=== PATIENT | male | born 1960 | race Caucasian/White ===

== ENCOUNTER → 2016-04-13 | Day surgery (SDC) | payer MEDICAID ==
[~2016-04-13] MED LIST: BUPIVACAINE HCL 0.5 % INJ/PF 30 ML SDV ONE; LIDOCAINE 1% INJ-PF (10 MG/ML) 30 ML SDV ONE; METHYLPREDNISOLONE ACETATE INJ 40 MG/1 ML ML ONE
== END ==
LOC: RAD 08:39
PROVIDERS: ATTEND Orthopaedic Surgery
PROC: 3E0U33Z Introduction of Anti-inflammatory into Joints, Percutaneous Approach (ICD-10-PCS; principal; 2016-04-13)
DX: M16.0 Bilateral primary osteoarthritis of hip (principal)
CPT/HCPCS: 73501; 20610; 77002; J3490; J1020

== ENCOUNTER → 2016-04-27 | Day surgery (SDC) | payer MEDICAID | LOC: RAD 08:35 | PROVIDERS: ATTEND Orthopaedic Surgery | PROC: 3E0U33Z Introduction of Anti-inflammatory into Joints, Percutaneous Approach (ICD-10-PCS; principal; 2016-04-27) | DX: M16.0 Bilateral primary osteoarthritis of hip (principal) | CPT/HCPCS: 73501; 20610; 77002; J3490; J1020 ==

== ENCOUNTER → 2016-05-06 | Outpatient (CLI) | payer MEDICAID | LOC: RAD 08:50 | PROVIDERS: ATTEND Nurse Practitioner Adult Health | DX: R06.02 Shortness of breath (principal) | CPT/HCPCS: 71250 ==

== ENCOUNTER 2016-09-23 13:09 | Observation (INO) | payer MEDICAID ==
--- NOTE | 2016-09-23 13:35 | ER Document Report ---
ED Medical Screen (RME) - General Chief Complaint: High Blood Pressure Stated Complaint: DIZZY,BLURRED VISION,LEFT ARM NUMB Time Seen by Provider: 09/23/16 13:33 Notes: Patient is here to be seen because of high blood pressure. He had an appointment to see a local physician today and when he went to their office, he says his blood pressure was 220/120 and they referred him here by EMS. Patient says he has been having some blurry vision for the past several years, intermittent numbness of the left arm for months, and a headache off and on, also for years, but worse this morning. Also has a rash on his abdomen that he had not noted. Says he has a history of congestive heart failure. Says he stopped taking all of his medicines because they did not seem to be working. EMS recorded a blood pressure of 230/135 and gave the patient some IV labetalol and received here. Patient denies any chest pains. TRAVEL OUTSIDE OF THE [place] IN LAST 30 DAYS: No - Related Data Allergies/Adverse Reactions: acetaminophen Allergy (Verified 09/23/16 13:16) Penicillins Allergy (Verified 09/23/16 13:16) Past Medical History - Past Medical History Cardiac Medical History: Reports: Hx Congestive Heart Failure, Hx Hypertension Pulmonary Medical History: Reports: Hx COPD Renal/ Medical History: Denies: Hx Peritoneal Dialysis GI Medical History: Reports: Hx Hiatal Hernia Psychiatric Medical History: Reports: Hx Depression
--- NOTE | 2016-09-23 14:06 | RADIOLOGY REPORT (SQ) ---
EXAM DESCRIPTION: CHEST SINGLE VIEW COMPLETED DATE/TIME: 09/23/2016 1:52 pm REASON FOR STUDY: severe hypertension, with Hx CHF COMPARISON: Chest CT scan dated April 2016 EXAM PARAMETERS: NUMBER OF VIEWS: One view. TECHNIQUE: Single frontal radiographic view of the chest acquired. RADIATION DOSE: NA LIMITATIONS: None. FINDINGS: LUNGS AND PLEURA: No opacities, masses or pneumothorax. No pleural effusion. MEDIASTINUM AND HILAR STRUCTURES: No masses. Contour normal. HEART AND VASCULAR STRUCTURES: Cardiac silhouette is at the upper limits of normal in size. BONES: No acute findings. HARDWARE: None in the chest. OTHER: No other significant finding. IMPRESSION: NO ACUTE RADIOGRAPHIC FINDING IN THE CHEST. TECHNICAL DOCUMENTATION: JOB ID: [id number]
[2016-09-23 14:10] LABS: ABSOLUTE EOSINOPHILS # (AUTO) 0.1 10^3/uL (0.0-0.6); ABSOLUTE LYMPHOCYTES (AUTO) 1.5 10^3/uL (0.5-4.7); ABSOLUTE MONOCYTES (AUTO) 0.7 10^3/uL (0.1-1.4); MEAN CORPUSCULAR HEMOGLOBIN 33.6 pg (27.0-33.4); RED BLOOD COUNT 5.31 10^6/uL (4.35-5.55); RED CELL DISTRIBUTION WIDTH 13.8 % (11.5-14.0)
[2016-09-23 14:25] LABS: ABSOLUTE NEUT (AUTO) 4.3 10^3/uL (1.7-8.2); BASOPHILS % (AUTO) 0.5 % (0-2); HEMATOCRIT 53.6 % (37.9-51.0); HEMOGLOBIN 17.8 g/dL (13.5-17.0); HGB HCT DIFFERENCE -0.2; LYMPHOCYTES % (AUTO) 22.4 % (13-45); MEAN CORPUSCULAR HGB CONC 33.2 g/dL (32.0-36.0); MEAN CORPUSCULAR VOLUME 101 fl (80-97); MONOCYTES % (AUTO) 10.9 % (3-13); SEGMENTED NEUTROPHILS % (AUTO) 64.2 % (42-78); WHITE BLOOD COUNT 6.7 10^3/uL (4.0-10.5)
[2016-09-23 14:26] LABS: ALANINE AMINOTRANSFERASE 34 U/L (21-72); ALBUMIN 4.1 g/dL (3.5-5.0); ALKALINE PHOSPHATASE 92 U/L (38-126); ANION GAP 11 (5-19); ASPARTATE AMINO TRANSFERASE 24 U/L (17-59); BILIRUBIN,DIRECT 0.5 mg/dL (0.0-0.4); BILIRUBIN,TOTAL 0.9 mg/dL (0.2-1.3); BLOOD UREA NITROGEN 16 mg/dL (7-20); CALCIUM 9.2 mg/dL (8.4-10.2); CARBON DIOXIDE 24 mmol/L (22-30); CHLORIDE 102 mmol/L (98-107); CREATINE KINASE 47 U/L (55-170); CREATININE RESULT 1.25 mg/dL (0.52-1.25); GLUCOSE 106 mg/dL (75-110); POTASSIUM 4.3 mmol/L (3.6-5.0); SODIUM 137.1 mmol/L (137-145); TOTAL PROTEIN 6.9 g/dL (6.3-8.2)
[2016-09-23 14:38] LABS: CREATINE KINASE MB 1.66 ng/mL (<4.55)
--- NOTE | 2016-09-23 14:44 | ER Document Report ---
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 He has not taken his amlodipine, Lasix, atenolol, lisinopril or Symbicort for 5 months because he did not feel like it was working. He also has a dull frontal headache, intermittent blurry vision for the past year and intermittent left arm numbness over the past several months. He currently is not having any blurry vision or arm numbness and his headache resolved. He was given 10 mg IV labetalol by EMS prior to arrival. Patient also has a non-pruritic rash over his abdomen for the past 6 months. While in the ER, he had mild left-sided chest achiness, which resolved after nitro. Denies ataxia, neck pain, shortness of breath, nausea, vomiting, sudden onset of headache, fevers, neck stiffness, leg swelling or hemoptysis. TRAVEL OUTSIDE OF THE [place] IN LAST 30 DAYS: No - Related Data Allergies/Adverse Reactions: acetaminophen Allergy (Verified 09/23/16 13:16) Penicillins Allergy (Verified 09/23/16 13:16) Past Medical History - General Information source: Patient - Social History Smoking Status: Current Every Day Smoker Family History: Reviewed & Not Pertinent Patient has suicidal ideation: No Patient has homicidal ideation: No - Past Medical History Cardiac Medical History: Reports: Hx Congestive Heart Failure, Hx Hypertension Pulmonary Medical History: Reports: Hx COPD Renal/ Medical History: Denies: Hx Peritoneal Dialysis GI Medical History: Reports: Hx Hiatal Hernia Psychiatric Medical History: Reports: Hx Depression Review of Systems - Review of Systems Notes: REVIEW OF SYSTEMS: CONSTITUTIONAL: -fevers, -chills EENT: -eye pain, -difficulty swallowing, -nasal congestion CARDIOVASCULAR: +chest pain, -syncope. RESPIRATORY: -cough, -SOB GASTROINTESTINAL: -abdominal pain, - nausea, -vomiting, -diarrhea GENITOURINARY: -dysuria, -hematuria MUSCULOSKELETAL: -back pain, -neck pain SKIN: -rash or skin lesions. HEMATOLOGIC: -easy bruising or bleeding. LYMPHATIC: -swollen, enlarged glands. NEUROLOGICAL: -altered mental status or loss of consciousness, +headache, + neurologic symptoms PSYCHIATRIC: -anxiety, -depression. ALL OTHER SYSTEMS REVIEWED AND NEGATIVE. Physical Exam - Vital signs Vitals: Pulse Ox 94 09/23/16 13:15 - Notes Notes: PHYSICAL EXAMINATION: GENERAL: Well-appearing, well-nourished and in no acute distress. HEAD: Atraumatic, normocephalic. EYES: Pupils equal round and reactive to light, extraocular movements intact, sclera anicteric, conjunctiva are normal. ENT: nares patent, oropharynx clear without exudates. Moist mucous membranes. NECK: Normal range of motion, supple without lymphadenopathy LUNGS: Breath sounds clear to auscultation bilaterally and equal. No wheezes rales or rhonchi. HEART: Regular rate and rhythm without murmurs ABDOMEN: Soft, nontender, normoactive bowel sounds. No guarding, no rebound. No masses appreciated. EXTREMITIES: Normal range of motion, no pitting or edema. No cyanosis. NEUROLOGICAL: Cranial nerves grossly intact. Normal speech, normal gait. Normal sensory and motor exams. PSYCH: Normal mood, normal affect. SKIN: Warm, Dry, normal turgor, no rashes or lesions noted. Course - Re-evaluation Re-evalutation: Patient has no findings indicative of a CVA at this time. NIHSS 0 and ABCD2 score. Pt had mild chest pain in the ED, which resolved with ASA and a nitro. HEART score 4. EKG unchanged. His blood pressure is 161/92 on arrival to the emergency room. Chest x-ray, EKG and CT head are all unremarkable. His PMD was Dr. Jenkins. Spoke to Dr. Jenkins and he discharged the patient from his practice 5 months ago due to non-compliance and disagreements. Spoke to Dr. Anand at 18: [address] Garland will see patient in ED and admit to Tele Obs. - Vital Signs Vital signs: Temp Pulse Resp BP Pulse Ox 18 180/100 H 96 09/23/16 17:01 09/23/16 17:01 09/23/16 17:01 - Laboratory Result Diagrams: 09/23/16 14:00 09/23/16 14:00 Laboratory results interpreted by me: 09/23/16 09/23/16 14:00 14:00 Hgb 17.8 H Hct 53.6 H MCV 101 H MCH 33.6 H Plt Count 132 L Est GFR (Non-Af Amer) 59 L Direct Bilirubin 0.5 H Creatine Kinase 47 L - Diagnostic Test Radiology reviewed: Image reviewed, Reports reviewed Radiology results interpreted by me: CXR: NAD CT Head: NAD - EKG Interpretation by Me EKG shows normal: Sinus rhythm, [place], Intervals, QRS Complexes, ST-T Waves Rate: Normal When compared to previous EKG there are: No significant change Discharge - Discharge Clinical Impression: Chest pain Qualifiers: Chest pain type: unspecified Qualified Code(s): R07.9 - Chest pain, unspecified Hypertension Qualifiers: Hypertension type: unspecified secondary hypertension Qualified Code(s): I15.9 - Secondary hypertension, unspecified Condition: Stable Disposition: ADMITTED OBSERVATION Admitting Provider: [facility] Unit Admitted: Telemetry
[2016-09-23 14:45] LABS: TROPONIN I 0.113 ng/mL
[2016-09-23] MEDS ORDERED: ASPIRIN 81 MG TABLET, CHEWABLE PO ONE (15:12)
--- NOTE | 2016-09-23 15:12 | RADIOLOGY REPORT (SQ) ---
EXAM DESCRIPTION: CT HEAD WITHOUT COMPLETED DATE/TIME: 09/23/2016 2:54 pm REASON FOR STUDY: left arm numbness COMPARISON: October 2014 TECHNIQUE: Axial images acquired through the brain without intravenous contrast. Images reviewed wi th bone, brain and subdural windows. Images stored on PACS. All CT scanners at this facility use dose modulation, iterative reconstruction, and/or weight based d osing when appropriate to reduce radiation dose to as low as reasonably achievable (ALARA). [facility]: Dose Right [facility]: CareDose [facility]: Dose Right [facility]: Teradose 4D [facility]: [employer] RADIATION DOSE: Up-to-date CT equipment and radiation dose reduction techniques were employed. CTDIv ol: 62.4 mGy. DLP: 1163 mGy-cm. mGy. LIMITATIONS: None. FINDINGS: VENTRICLES: Prominent. CEREBRUM: No masses. No hemorrhage. No midline shift. Areas of low density in the white matter mos t likely due to chronic micro-vascular ischemic change. No evidence for acute infarction. CEREBELLUM: No masses. No hemorrhage. No alteration of density. No evidence for acute infarction. EXTRAAXIAL SPACES: Mild age-related involutional change. No fluid collections. No masses. ORBITS AND GLOBE: No intra- or extraconal masses. Normal contour of globe without masses. CALVARIUM: No fracture. PARANASAL SINUSES: There is almost complete opacification of the left maxillary antra. Mucosal thick ening is identified in several of the ethmoidal air cells. A small mucosal polyp retention cyst is i dentified in the right maxillary antra SOFT TISSUES: No mass or hematoma. OTHER: No other significant finding. IMPRESSION: MILD CHRONIC CHANGES OF ATROPHY AND MICROVASCULAR ISCHEMIA. Sinus disease as noted abov e. Other findings as noted above TECHNICAL DOCUMENTATION: JOB ID: [id number] Quality ID # [id number]: Final reports with documentation of one or more dose reduction techniques (e.g., Au tomated exposure control, adjustment of the mA and/or kV according to patient size, use of iterative reconstruction technique) 2010 [employer]- All Rights Reserved
[2016-09-23] MEDS ORDERED: IBUPROFEN 600 MG TABLET PO ONE (15:38)
[2016-09-23] MEDS ORDERED: NITROGLYCERIN 0.4 MG/TAB 25 TAB/BOTTLE SL PRN (17:59)
[2016-09-23] MEDS ORDERED: ENOXAPARIN SODIUM INJ 100 MG/1 ML DISP.SYRIN SUBCUT SCH (18:00)
[2016-09-23] MEDS ORDERED: ONDANSETRON HCL INJ/PF 4 MG/2 ML SDV IV PRN (18:16)
[2016-09-23] MEDS ORDERED: LORAZEPAM INJ 2 MG/1 ML VIAL IV PRN (18:20)
[2016-09-23] MEDS ORDERED: HYDRALAZINE HCL INJ/PF 20 MG/1 ML SDV IV PRN (18:21)
[2016-09-23] MEDS ORDERED: AMLODIPINE BESYLATE 5 MG TABLET PO SCH (18:30)
--- NOTE | 2016-09-23 18:41 | EKG REPORT ---
SEVERITY:- BORDERLINE ECG - SINUS RHYTHM WITH PACS BORDERLINE T WAVE ABNORMALITIES INFEROLATERAL LEADS. : Confirmed by: Javier Lazaro MD 23-Sep-2016 18:40:30
[2016-09-23] MEDS ORDERED: ALBUTEROL SULFATE 0.083% NEB 2.5 MG/3 ML AMPUL NEB PRN (18:42)
[2016-09-23] MEDS: NITROGLYCERIN 2% OINTMENT 1 GM PACKET TP SCH ×2 (18:54→23:32)
--- NOTE | 2016-09-23 18:55 | PDOC H&P ---
History of Present Illness Admission Date/PCP: Primary care provider-none Svp-Dr. Nguyen Cardiology-Dr. Jay History of Present Illness: TESS MUJICA is a 56 year old male with past medical history of CHF and last documented EF of 40% in 2014, hypertension, COPD, tobacco abuse, alcohol abuse presents with onset of chest pain today. He was seen at Dr. Nguyen's office today and advised to go to the emergency department for chest pain or to sign out AGAINST MEDICAL ADVICE from their office. Patient decided to go to the emergency department as advised. Patient states that he is having dull left- sided chest pain with no radiation. This seemed to be relieved with nitroglycerin. Review of pharmacy records indicate the patient does not seem to be compliant with antihypertensive medications. He continues to smoke 2 packs a day and drink at least a couple alcoholic beverages daily. Echocardiogram 2014-EF 40% Cardiolite stress test 2015-normal perfusion, EF 25%. Medications have not been verified. Past Medical History Cardiac Medical History: Reports: Congestive Heart Failure - EF 40% in 2014, Hypertension Pulmonary Medical History: Reports: Chronic Obstructive Pulmonary Disease (COPD) GI Medical History: Reports: Hiatal Hernia Psychiatric Medical History: Reports: Depression Past Surgical History Past Surgical History: Reports: None Social History Information Source: Patient Lives with: Alone Smoking Status: Current Every Day Smoker Frequency of Alcohol Use: Heavy - Currently 1-2 beers daily, heavy alcohol abuse until 10 years ago Hx Recreational Drug Use: Yes Drugs: Marijuana Hx Prescription Drug Abuse: No - Advance Directive Resuscitation Status: Full Code Family History Family History: Malignancy - Father, Other - Congestive heart failure-mother Parental Family History Reviewed: Yes Children Family History Reviewed: Yes Sibling(s) Family History Reviewed.: Yes Medication/Allergy Home Medications: Aspirin [Ecotrin 81 mg EC Tablet] 81 mg PO DAILY #30 tabec 11/11/14 Atenolol [Tenormin 50 mg Tablet] 50 mg PO DAILY #30 tablet 11/11/14 Folic Acid [Folvite 1 mg Tablet] 1 mg PO DAILY #30 tablet 11/11/14 Furosemide [Lasix 40 mg Tablet] 40 mg PO QAM #30 tablet 11/11/14 Ipratropium/Albuterol Sulfate [Combivent Respimat 4 gm Mdi] 1 puff IH Q6 #1 aer.w.adap 11/11/14 Multivitamin [Tab-A-[place] (Multiple Vitamin) Tablet] 1 tab PO DAILY #0 tablet Thiamine HCl [Thiamine 100 mg Tablet] 100 mg PO DAILY #30 tablet 11/11/14 Amlodipine Besylate [Norvasc 5 mg Tablet] 5 mg PO BID #60 tablet 02/02/16 Ipratropium/Albuterol Sulfate [Duoneb 3 ml Ampul] 3 ml [facility] RTQ6HP PRN #120 vial.neb 02/02/16 Levofloxacin [Levaquin 500 mg Tablet] 500 mg PO DAILY #5 tablet 02/02/16 Lisinopril 20 mg PO BID #60 tablet 02/02/16 Lisinopril [Prinivil 10 mg Tablet] 20 mg PO Q12 #0 tablet 02/02/16 Lisinopril [Prinivil 10 mg Tablet] 20 mg PO Q12 #60 tablet 02/02/16 Nebulizer Accessories [A.i.r.s. Nebulizer] 1 each MC Q4HP PRN #120 kit 02/02/16 Nebulizer [Nebulizer Machine] 1 each MC ASDIR PRN #1 kit 02/02/16 Prednisone 10 mg PO DAILY #20 tablet 02/02/16 Allergies/Adverse Reactions: acetaminophen Allergy (Verified 09/23/16 13:16) Penicillins Allergy (Verified 09/23/16 13:16) Review of Systems Constitutional: PRESENT: fatigue, weakness. ABSENT: chills, fever(s), headache( s), weight gain, weight loss Eyes: ABSENT: visual disturbances Ears: ABSENT: hearing changes Cardiovascular: PRESENT: chest pain, dyspnea on exertion. ABSENT: edema, orthropnea, palpitations Respiratory: PRESENT: cough, dyspnea, sputum - Chronic productive cough. ABSENT : hemoptysis Gastrointestinal: ABSENT: abdominal pain, constipation, diarrhea, hematemesis, hematochezia, nausea, vomiting Genitourinary: ABSENT: dysuria, hematuria Musculoskeletal: ABSENT: joint swelling Integumentary: ABSENT: rash, wounds Neurological: ABSENT: abnormal gait, abnormal speech, confusion, dizziness, focal weakness, syncope Psychiatric: ABSENT: anxiety, depression, homidical ideation, suicidal ideation Endocrine: ABSENT: cold intolerance, heat intolerance, polydipsia, polyuria Hematologic/Lymphatic: ABSENT: easy bleeding, easy bruising Physical Exam Vital Signs: Temp Pulse Resp BP Pulse Ox 18 180/100 H 96 09/23/16 17:01 09/23/16 17:01 09/23/16 17:01 Intake & Output 09/22/16 09/23/16 09/24/16 06:59 06:59 06:59 Weight 95.6 kg PHYSICAL EXAM: GENERAL: Appears well, no acute distress HEENT: Normocephalic, no scleral icterus, conjunctiva clear, EOEM intact, PERRLA , moist mucous membranes NECK: trachea midline, no thyromegally RESPIRATORY: Clear to auscultation, no wheezes/rhonchi CARDIAC: Regular rate and rhythm, no murmur/galdino/rub ABDOMEN: Soft, obese, no tenderness, no guarding, normal bowel sounds, negative Reaves sign RECTAL: deferred : deferred EXTREMITIES: No edema, cyanosis, clubbing MUSCULOSKELETAL: No joint swelling or deformity VASCULAR: normal peripheral pulses NEUROLOGIC: Alert, oriented to person/place/time, normal speech, cranial nerves grossly intact, 5/5 strength in all extremities, tactile sensation intact in all extremities SKIN: No rash, no wounds, no worrisome skin lesions PSYCHIATRIC: Normal mood, normal affect Results Laboratory Results: 09/23/16 14:00 09/23/16 14:00 09/23/16 09/23/16 14:00 14:00 WBC 6.7 RBC 5.31 Hgb 17.8 H Hct 53.6 H MCV 101 H MCH 33.6 H MCHC 33.2 RDW 13.8 Plt Count 132 L Seg Neutrophils % 64.2 Lymphocytes % 22.4 Monocytes % 10.9 Eosinophils % 2.0 Basophils % 0.5 Absolute Neutrophils 4.3 Absolute Lymphocytes 1.5 Absolute Monocytes 0.7 Absolute Eosinophils 0.1 Absolute Basophils 0.0 Sodium 137.1 Potassium 4.3 Chloride 102 Carbon Dioxide 24 Anion Gap 11 BUN 16 Creatinine 1.25 Est GFR ( Amer) > 60 Est GFR (Non-Af Amer) 59 L Glucose 106 Calcium 9.2 Total Bilirubin 0.9 AST 24 ALT 34 Alkaline Phosphatase 92 Total Protein 6.9 Albumin 4.1 09/23/16 09/23/16 09/23/16 14:00 14:00 16:55 Creatine Kinase 47 L CK-MB (CK-2) 1.66 Troponin I 0.113 0.120 EKG Comments: Sinus rhythm, nonspecific T-wave flattening in inferior leads, no acute ST elevation/depression Impressions: Chest X-Ray 09/23/16 13:35 IMPRESSION: NO ACUTE RADIOGRAPHIC FINDING IN THE CHEST. Head CT 09/23/16 14:09 IMPRESSION: MILD CHRONIC CHANGES OF ATROPHY AND MICROVASCULAR ISCHEMIA. Sinus disease as noted above. Other findings as noted above Assessment & Plan - Diagnosis (1) Chest pain Is this a current diagnosis for this admission?: YesPlan: Placed patient on telemetry monitoring. Serial cardiac enzymes given slightly elevated troponin. Aspirin. Check stress test and echocardiogram. Consult Dr. Boyce of cardiology. (2) Hypertensive urgency Is this a current diagnosis for this admission?: YesPlan: Start nitroglycerin paste for this as well as chest pain. Start lisinopril 10 mg twice daily for this as well as cardiomyopathy. I will add Coreg as well after stress test. (3) Elevated troponin I level Is this a current diagnosis for this admission?: Yes (4) CHF (congestive heart failure) Qualifiers: Congestive heart failure type: systolic Congestive heart failure chronicity: chronic Qualified Code(s): I50.22 - Chronic systolic ( congestive) heart failure Is this a current diagnosis for this admission?: YesPlan: Secondary to systolic dysfunction with last recorded EF of 40% 2014. Clinically compensated at this time. Start lisinopril 10 mg twice daily. Start Coreg after stress test. Consult cardiology. Repeat echocardiogram. (5) Thrombocytopenia Is this a current diagnosis for this admission?: Yes (6) Alcohol use disorder Is this a current diagnosis for this admission?: YesPlan: Monitor for signs of withdrawal. As needed Ativan. Thiamine. Patient counseled on alcohol cessation and setting of cardiomyopathy. (7) COPD (chronic obstructive pulmonary disease) Qualifiers: COPD type: unspecified COPD Qualified Code(s): J44.9 - Chronic obstructive pulmonary disease, unspecified Is this a current diagnosis for this admission?: YesPlan: Start Symbicort. As needed albuterol. Follow-up with Dr. Nguyen of pulmonary medicine after discharge. (8) Tobacco abuse Is this a current diagnosis for this admission?: Yes - Time Time Spent: Greater than 70 Minutes Anticipated discharge: Home Within: within 48 hours
[2016-09-23] MEDS ORDERED: AMLODIPINE BESYLATE 5 MG TABLET PO ONE (19:00)
[2016-09-23] MEDS ORDERED: ENOXAPARIN SODIUM INJ 100 MG/1 ML DISP.SYRIN SUBCUT ONE (19:00)
[2016-09-23] MEDS ORDERED: PANTOPRAZOLE SODIUM 40 MG VIAL IV ONE (19:00)
[2016-09-23 19:40] LABS: URINE BARBITURATES SCREEN NEGATIVE; URINE METHADONE SCREEN NEGATIVE; URINE OPIATES LOW NEGATIVE; URINE PHENCYCLIDINE SCREEN NEGATIVE
[2016-09-23] MEDS: LISINOPRIL 10 MG TABLET PO SCH (22:00)
[2016-09-23] MEDS: BUDESONIDE/FORMOTEROL 160-4.5 MCG 60 PUFF/6 GM MDI IH SCH (22:01)
[2016-09-23 23:51] LABS: CREATINE KINASE MB 1.9 ng/mL (<4.55); TROPONIN I 0.107 ng/mL
[2016-09-24] MEDS ORDERED: OXYCODONE HCL IR 5 MG TABLET PO ONE (00:30)
[2016-09-24] MEDS: NITROGLYCERIN 2% OINTMENT 1 GM PACKET TP SCH (05:20)
[2016-09-24 05:40] LABS: ABSOLUTE EOSINOPHILS # (AUTO) 0.1 10^3/uL (0.0-0.6); ABSOLUTE LYMPHOCYTES (AUTO) 1.2 10^3/uL (0.5-4.7); ABSOLUTE MONOCYTES (AUTO) 0.5 10^3/uL (0.1-1.4); ABSOLUTE NEUT (AUTO) 3.9 10^3/uL (1.7-8.2); BASOPHILS % (AUTO) 0.4 % (0-2); EOSINOPHILS % (AUTO) 1.9 % (0-6); HEMATOCRIT 49.7 % (37.9-51.0); HEMOGLOBIN 16.2 g/dL (13.5-17.0); HGB HCT DIFFERENCE -1.1; LYMPHOCYTES % (AUTO) 20.8 % (13-45); MEAN CORPUSCULAR HEMOGLOBIN 33.3 pg (27.0-33.4); MEAN CORPUSCULAR HGB CONC 32.6 g/dL (32.0-36.0); MEAN CORPUSCULAR VOLUME 102 fl (80-97); MONOCYTES % (AUTO) 9.2 % (3-13); RED BLOOD COUNT 4.87 10^6/uL (4.35-5.55); RED CELL DISTRIBUTION WIDTH 13.8 % (11.5-14.0); SEGMENTED NEUTROPHILS % (AUTO) 67.7 % (42-78); WHITE BLOOD COUNT 5.7 10^3/uL (4.0-10.5)
[2016-09-24 05:59] LABS: ANION GAP 8 (5-19); BLOOD UREA NITROGEN 15 mg/dL (7-20); CALCIUM 8.8 mg/dL (8.4-10.2); CARBON DIOXIDE 26 mmol/L (22-30); CHLORIDE 101 mmol/L (98-107); CHOLESTEROL 139.52 mg/dL (0-200); CREATINE KINASE 47 U/L (55-170); CREATININE RESULT 1.18 mg/dL (0.52-1.25); Direct HDL 34 mg/dL (>40); GLUCOSE 123 mg/dL (75-110); POTASSIUM 4.4 mmol/L (3.6-5.0); SODIUM 135.3 mmol/L (137-145); TRIGLYCERIDES 192 mg/dL (<150)
[2016-09-24] MEDS ORDERED: PANTOPRAZOLE SODIUM 40 MG VIAL IV SCH (06:00)
[2016-09-24 06:08] LABS: CREATINE KINASE MB 1.69 ng/mL (<4.55); TROPONIN I 0.099 ng/mL
[2016-09-24 06:09] LABS: DIRECT LDL 77 mg/dL (<100)
[2016-09-24 06:10] LABS: VLDL CHOLESTEROL 38.4 mg/dL (10-31)
[2016-09-24] MEDS ORDERED: OXYCODONE HCL IR 5 MG TABLET ONE (07:59)
[2016-09-24] MEDS ORDERED: OXYCODONE HCL IR 5 MG TABLET PO PRN (08:16)
[2016-09-24] MEDS ORDERED: IBUPROFEN 400 MG TABLET PO PRN (08:17)
[2016-09-24 08:47] VITALS: BP 138/79
[2016-09-24] MEDS: BUDESONIDE/FORMOTEROL 160-4.5 MCG 60 PUFF/6 GM MDI IH SCH (09:52)
[2016-09-24] MEDS: LISINOPRIL 10 MG TABLET PO SCH (09:52)
[2016-09-24] MEDS ORDERED: AMLODIPINE BESYLATE 5 MG TABLET PO SCH (10:00)
[2016-09-24] MEDS ORDERED: ENOXAPARIN SODIUM INJ 40 MG/0.4 ML DISP.SYRIN SUBCUT SCH (10:00)
[2016-09-24] MEDS ORDERED: ENOXAPARIN SODIUM INJ 100 MG/1 ML DISP.SYRIN SUBCUT SCH (10:00)
[2016-09-24] MEDS ORDERED: THIAMINE HCL 100 MG TABLET PO SCH (10:00)
[2016-09-24] MEDS ORDERED: ASPIRIN 81 MG TABLET, ENT COATED PO SCH (10:00)
--- NOTE | 2016-09-24 12:01 | XCELERA REPORT ---
[address] [address] Transthoracic Echocardiogram Report Name: TESS MUJICA Age: 56 yrs Gender: Male : 1960 Patient Status: Inpatient Patient Location: [id number] Study Date: 09/24/2016 08:39 AM Height: 66 in Weight: 210 lb BSA: 2.0 m2 Procedure: A two-dimensional transthoracic echocardiogram with color flow and Doppler was performed. Study Quality: Fair. Reason For Study: CHF History: CHF. Ordering Physician: HARVINDER ROY Performed By: Velma Espinal Interpretation Summary The left ventricle is normal in size. There is moderate concentric left ventricular hypertrophy. LV EF is 50% Left ventricular systolic function is borderline reduced. LV diastolic function could not be adequately assessed. There is borderline global hypokinesis of the left ventricle. The right ventricle is normal in size and function. The right atrium is normal. The left atrium is moderately dilated. There is no evidence of mitral valve prolapse. There is no mitral valve stenosis. There is no mitral regurgitation noted. There is no aortic valve stenosis There is no LVOT obstruction. No aortic regurgitation is present. There is no tricuspid stenosis. No tricuspid regurgitation. Unable to calculate RVSP due to isufficient TR jet. There is no pericardial effusion. MMode/2D Measurements \T\ Calculations RVDd: 2.5 cm LVIDd: 5.3 cmFS: 20.9 % Ao root diam: 3.2 cm IVSd: 1.5 cm LVIDs: 4.2 cmEDV(Teich): 134.9 ml LVPWd: 1.6 cmESV(Teich): 77.9 ml Ao root area: 7.9 cm2 EF(Teich): 42.2 % LA dimension: 4.6 cm LVOT diam: 2.0 cm LVOT area: 3.3 cm2 Doppler Measurements \T\ Calculations MV E max nelda: MV P1/2t max nelda: Ao V2 max: LV V1 max P.7 cm/sec 62.7 cm/sec 137.3 cm/sec 4.8 mmHg MV A max nelda: MV P1/2t: 53.2 msec Ao max PG: LV V1 max: 69.1 cm/sec MVA(P1/2t): 4.1 cm2 7.5 mmHg 109.1 cm/sec MV E/A: 0.89 MV dec slope: LITZY(V,D): 2.6 cm2 344.8 cm/sec2 PA V2 max: 92.3 cm/sec PA max P.4 mmHg Left Ventricle The left ventricle is normal in size. There is moderate concentric left ventricular hypertrophy. LV EF is 50%. Left ventricular systolic function is borderline reduced. LV diastolic function could not be adequately assessed. There is borderline global hypokinesis of the left ventricle. There is no thrombus. There is no ventricular septal defect visualized. Right Ventricle The right ventricle is normal in size and function. Atria The right atrium is normal. The left atrium is moderately dilated. The interatrial septum is intact with no evidence for an atrial septal defect. Mitral Valve There is no evidence of mitral valve prolapse. There is no vegetation seen on the mitral valve. There is no mitral valve stenosis. There is no mitral regurgitation noted. Aortic Valve There is no aortic valvular vegetation. There is no aortic valve stenosis. There is no LVOT obstruction. No aortic regurgitation is present. Tricuspid Valve There is no tricuspid stenosis. No tricuspid regurgitation. Unable to calculate RVSP due to isufficient TR jet. Pulmonic Valve There is no pulmonic valvular stenosis. There is no pulmonic valvular regurgitation. Great Vessels The aortic root is not well visualized. Effusions There is no pericardial effusion. : HARVINDER ROY > Viviane Boyce
--- NOTE | 2016-09-24 12:33 | PDOC DISCHARGE SUMMARY ---
General - Admit/Disc Date/PCP Admission Date/Primary Care Provider: 09/23/16 18:17 Discharge Date: 09/24/16 - Discharge Diagnosis (1) Chest pain Is this a current diagnosis for this admission?: Yes (2) Hypertensive urgency Is this a current diagnosis for this admission?: Yes (3) Elevated troponin I level Is this a current diagnosis for this admission?: Yes (4) CHF (congestive heart failure) Is this a current diagnosis for this admission?: Yes (5) Thrombocytopenia Is this a current diagnosis for this admission?: Yes (6) Alcohol use disorder Is this a current diagnosis for this admission?: Yes (7) COPD (chronic obstructive pulmonary disease) Is this a current diagnosis for this admission?: Yes (8) Tobacco abuse Is this a current diagnosis for this admission?: Yes - Additional Information Resuscitation Status: Full Code Discharge Diet: Cardiac Discharge Activity: Activity As Tolerated, Balance Activity w/Rest Home Medications: Aspirin [Ecotrin 81 mg EC Tablet] 81 mg PO DAILY tabec 09/24/16 Budesonide/Formoterol Fumarate [Symbicort HFA 160-4.5 mcg Inhaler 6 gm] 2 puff IH Q12 #1 inhaler 09/24/16 Lisinopril [Prinivil 10 mg Tablet] 10 mg PO Q12 #60 tablet 09/24/16 Metoprolol Succinate [Toprol Xl 50 mg Tab.sr] 50 mg PO DAILY #30 tab.sr.24h History of Present Illness Patient complains of: Chest pain History of Present Illness: TESS MUJICA is a 56 year old male with past medical history of CHF and last documented EF of 40% in 2014, hypertension, COPD, tobacco abuse, alcohol abuse presents with onset of chest pain today. He was seen at Dr. Nguyen's office today and advised to go to the emergency department for chest pain or to sign out AGAINST MEDICAL ADVICE from their office. Patient decided to go to the emergency department as advised. Patient states that he is having dull left- sided chest pain with no radiation. This seemed to be relieved with nitroglycerin. Review of pharmacy records indicate the patient does not seem to be compliant with antihypertensive medications. He continues to smoke 2 packs a day and drink at least a couple alcoholic beverages daily. Echocardiogram 2014-EF 40% Cardiolite stress test 2015-normal perfusion, EF 25%. Hospital Course Hospital Course: Patient placed in observation status overnight for chest pain. Initial troponin slightly elevated with normal CK and CK-MB. Troponin subsequently trended down to normal. Slightly elevated troponin likely secondary to uncontrolled hypertension. Patient had negative perfusion study couple years ago. Repeat echocardiogram showed EF 50%. Case discussed with Dr. Boyce of cardiology and patient will follow-up with Dr. Boyce as an outpatient. Patient was started on lisinopril and Toprol-XL for hypertension. Patient was offered repeat stress test while in the hospital was very anxious to be discharged from the hospital so this will be arranged as an outpatient by Dr. Boyce. Patient was advised to stop smoking and drinking alcohol. COPD: Started Symbicort. As needed albuterol. Follow-up with Dr. Nguyen of pulmonary medicine after discharge. Physical Exam Vital Signs: Temp Pulse Resp BP Pulse Ox 98.3 F 79 20 138/79 H 95 09/24/16 11:28 09/24/16 11:28 09/24/16 11:28 09/24/16 11:28 09/24/16 11:28 Intake & Output 09/23/16 09/24/16 09/25/16 06:59 06:59 06:59 Intake Total 40 Balance 40 Weight 92.1 kg GENERAL: No acute distress HEENT: Conjunctiva clear, nonicteric, moist mucous membranes, no JVD, midline trachea RESPIRATORY: Clear to auscultation bilaterally, no wheezes, no rhonchi CARDIAC: Regular rate and rhythm, no murmurs/gallops/rubs ABDOMEN: Soft, nondistended, nontender, positive bowel sounds, no rebound, no guarding EXTREMETIES: No edema, cyanosis, clubbing NEUROLOGIC: Alert, oriented to person/place/time, CN's grossly intact, no focal deficits SKIN: No rash, wounds PSYCH: anxious Results Laboratory Results: 09/24/16 04:57 09/24/16 04:57 09/24/16 09/24/16 04:57 04:57 WBC 5.7 RBC 4.87 Hgb 16.2 Hct 49.7 MCV 102 H MCH 33.3 MCHC 32.6 RDW 13.8 Plt Count 116 L Seg Neutrophils % 67.7 Lymphocytes % 20.8 Monocytes % 9.2 Eosinophils % 1.9 Basophils % 0.4 Absolute Neutrophils 3.9 Absolute Lymphocytes 1.2 Absolute Monocytes 0.5 Absolute Eosinophils 0.1 Absolute Basophils 0.0 Sodium 135.3 L Potassium 4.4 Chloride 101 Carbon Dioxide 26 Anion Gap 8 BUN 15 Creatinine 1.18 Est GFR ( Amer) > 60 Est GFR (Non-Af Amer) > 60 Glucose 123 H Calcium 8.8 Triglycerides 192 H Cholesterol 139.52 LDL Cholesterol Direct 77 VLDL Cholesterol 38.4 H HDL Cholesterol 34 L 09/23/16 09/23/16 09/24/16 23:05 23:05 04:57 Creatine Kinase 52 L 47 L CK-MB (CK-2) 1.90 Troponin I 0.107 09/24/16 04:57 Creatine Kinase CK-MB (CK-2) 1.69 Troponin I 0.099 Impressions: Chest X-Ray 09/23/16 13:35 IMPRESSION: NO ACUTE RADIOGRAPHIC FINDING IN THE CHEST. Head CT 09/23/16 14:09 IMPRESSION: MILD CHRONIC CHANGES OF ATROPHY AND MICROVASCULAR ISCHEMIA. Sinus disease as noted above. Other findings as noted above Qualifiers PATEINT BEING DISCHARGED WITH ANY OF THE FOLLOWING DIAGNOSIS?: No Plan Time Spent: Less than 30 Minutes
--- NOTE | 2016-09-25 01:53 | CONSULTATION REPORT E ---
Consultation Report NAME: TESS MUJICA : 1960 AGE: 56Y DATE: 09/24/2016 ROOM: 308 A TO: ARNOLD JOHNS M.D. FROM: HARVINDER ROY Requesting Physician REASON FOR CONSULTATION: Patient with chest pain and multiple risk factors for coronary artery disease. HISTORY OF PRESENT ILLNESS: The patient is a 56-year-old male with known history of COPD and hypertension and a past history of congestive heart failure and cardiomyopathy who went to see Dr. Nlul yesterday and complained of chest pain/pressure. At that time the patient stated his blood pressure was 240 systolic. He was asked to go to the emergency room or sign out AMA from the office and hence the patient came to the emergency room where his initial blood pressure was slightly high. The patient's blood pressure was controlled and subsequently the patient had no chest pain. The patient is not a very good historian. He states the chest pain lasted for about an half an hour or so. There was some associated shortness of breath but no palpitation, PND, or orthopnea. The patient denies any PND or any symptoms of acute exacerbation of COPD. There is no cough or sputum production. There are no palpitations or syncope. PAST MEDICAL HISTORY: Positive for history of hypertension, history of COPD, history of hiatal hernia, history of depression. He also has history of EtOH and alcohol abuse. He denies any recent symptoms or acute exacerbation of COPD. There is no history of chronic kidney disease. There is no history of diabetes mellitus or thyroid disease. In the past the patient had a stress test in 2014 which showed normal for patient with an EF of 25%. His echocardiogram in 2015 showed an EF of 40%. He has no history of TIA or CVA. No history of seizures, headaches, or migraines. The is no history of chronic kidney disease. No history of thyroid disease or diabetes mellitus. PAST SURGICAL HISTORY: Negative. SOCIAL HISTORY: The patient is a smoker. He also drinks heavily. FAMILY HISTORY: Positive for chronic atrial fibrillation in his mother and hypertension but no history of coronary artery disease. ALLERGIES: PENICILLIN. MEDICATIONS: 1. Aspirin 325 mg x1 and 81 mg p.o. daily. 2. Ibuprofen 600 mg p.o. x1. 3. Nitroglycerin 1 tablet sublingual as directed p.r.n. 4. Lovenox 95 mg subcutaneously q.12 hours. 5. Nitroglycerin 2% ointment 1 g topically q.6 hours. 6. Zofran 4 mg IV q.8 hours p.r.n. 7. Lorazepam 1 mg IV q.4 hours p.r.n. 8. Hydralazine 10 mg IV q.6 hours p.r.n. 9. Protonix 40 mg IV q.12 hours. 10. Amlodipine 5 mg p.o. daily. 11. Albuterol sulfate/Ventolin 2.5 mg nebulizer treatment q.6 hours p.r.n. 12. Lovenox 95 mg subcutaneously x1. 13. Lisinopril 10 mg p.o. q.12 hours. 14. Symbicort HFA 160-4.5 mcg inhaler 2 puffs inhalation q.12 hours. 15. Oxycodone 1 tablet p.o. x1 and 5 mg p.o. q.6 hours p.r.n. 16. Ibuprofen/Motrin 400 mg p.o. q.6 hours p.r.n. 17. Thiamine 100 mg p.o. daily. REVIEW OF SYSTEMS: CONSTITUTIONAL: Denies any fever, chills or rigors. Complains of generalized fatigue and headache. HEAD: Denies any headaches or head injury. EYES: No history of amblyopia or diplopia. No history of amaurosis fugax. No history of glaucoma. EARS: No history of hearing loss. No history of tinnitus. No history of recurrent ear infections. NOSE: No history of hay fever. No history of deviated nasal septum. No history of inflammation of the nasal mucous membrane. No nosebleeds. No nasal polyps. MOUTH: No history of altered taste sensation. No history of ulcers in the mouth. No history of bleeding from the gums. THROAT: There is no odynophagia or dysphagia. No history of recurrent sore throats. SKIN: No history of pruritus. No history of psoriasis. No history of skin cancer. NECK: No history of symptoms of c-spine arthritis. No history painless or painful swelling of the neck. LUNGS: History of COPD. No history of recent symptoms of wheezing or sputum production or symptoms of acute exacerbation of COPD. No history of sleep apnea. No history of pleuritic chest pain. No history of hemoptysis. CARDIAC: History of hypertension, positive congestive heart failure. No prior history of coronary artery disease or ID. Denies any PND, orthopnea. History of chest pain when the patient's blood pressure was uncontrolled. History of hypertension present. The patient seems to be noncompliant with medications. GASTROINTESTINAL: History of hiatal hernia. History of GERD. No history of GI bleed. No history of fatty food intolerance. No history of jaundice. No history of cirrhosis. No history of hepatitis. No history of altered bowel movements. MUSCULOSKELETAL: History of chronic back pain due to lumbar sacral spine arthritis. The patient is disabled due to that and due to his COPD. CENTRAL NERVOUS SYSTEM: No history of TIA or CVA. No history of seizures, headaches, or migraines. No history of sleep apnea. No history of gait imbalance. PSYCHIATRIC: History of depression. No history of anxiety. No history of suicidal ideation. No history of homicidal ideation. ENDOCRINE: No history of diabetes mellitus. No history of thyroid disease. No history of polydipsia, polyuria. No history of heat or cold intolerance. RENAL: No history of chronic kidney disease. No symptoms of UTI. No history of hematuria, pyuria, or dysuria. VASCULAR: No history calf or buttock claudication. No history of DVT. HEMATOLOGICAL: No history of bleeding diathesis. No history of clotting disorders. DISCUSSION: The patient is a full code. His brother is the surrogate healthcare decision maker. PHYSICAL EXAMINATION: GENERAL: On examination the patient is mildly obese, in no acute distress. VITAL SIGNS: He is afebrile with a temperature of 98.3 degrees Fahrenheit, pulse of 79 beats per minute, blood pressure is 138/79, respirations are 20 per minute, O2 saturations are 95% on room air. HEENT: Head is atraumatic, normocephalic. Eyes: Pupils are equal, round and regular, reactive to light and accommodation. Extraocular movements are normal. There is no conjunctival pallor. There is no scleral icterus. Ears: Tympanic membranes are intact. External auditory canals are clear. Nose; there is no deviated nasal septum. There is no inflammation of the nasal mucous membranes. There are no nasal polyps. Mouth; mucous membranes of the mouth are moist, tongue is moist. There are no ulcers. There is no bleeding from the gums. Throat; there is no redness of the oropharynx. There are no exudates. SKIN: There are no skin rashes. There is no skin lesion. There is no petechiae or ecchymosis. NECK: Supple. There is no JVD. There is no lymphadenopathy. There is no goiter. Carotids are equal. There is no bruit. Trachea is central. LUNGS: Show diminished air entry, prolonged expiration at bases. There is not any rhonchi, rub, or wheezing. There is no chest wall tenderness. There is hyperresonance on percussion. HEART: S1 and S2 is heard. There is no S3 gallop. There is no S4 gallop. There is a systolic murmur in the left sternal border and the apex. There is no rub. ABDOMEN: Soft, nontender, obese. There is no hepatosplenomegaly. Bowel sounds are well heard. There is no rebound, guarding, or rigidity. EXTREMITIES: Femorals are deep. Femorals are diminished. Leg pulses are slightly diminished. There is no pedal edema. There is no cyanosis or clubbing. There is no DVT or cellulitis. There is no calf tenderness. There is normal capillary refill. CENTRAL NERVOUS SYSTEM: The patient is conscious, awake, alert and oriented x3 with no focal deficits. PSYCHIATRIC: The patient's judgment and insight are intact. His affect is normal. DIAGNOSTIC STUDIES: The patient's initial EKG shows sinus rhythm, probable borderline T abnormalities inferolateral leads. The patient's chest x-ray shows no acute radiographic findings. The patient's echocardiogram shows that the left ventricle is of normal size, there is moderate concentric left ventricular hypertrophy, LV ejection fraction is borderline reduced at 50%. There is borderline global hypokinesis of the left ventricle. The right ventricle is normal size and function. There is no evidence of mitral valve prolapse. There is no mitral valve stenosis. There is no mitral regurgitation. There is no aortic valve stenosis. There is no aortic regurgitation. There is no tricuspid stenosis, no tricuspid regurgitation. Unable to estimate RVSF due to intermittent TR jet. There is no pericardial effusion. The patient's white count is 5700, hemoglobin is 16.2, hematocrit is 49.7, his platelet count is 116,000. His MCV is 102,000. The patient's sodium is 135.3, potassium is 4.4, chloride is 101, CO2 is 26. The patient's BUN is 15, creatinine is 1.18, GFR is greater than 60%. His CPK and CPK-MBs are negative. His troponin I is borderline at 0.113, 0.120, 0.107, and 0.099. His triglycerides are elevated at 192. His LDL cholesterol is good at 77. His HDL cholesterol is low at 34. Toxicology shows urine marijuana is unconfirmed positive. The urine cocaine, benzodiazepine, amphetamine, phencyclidine, barbiturates, methadone, and opiates are all negative. IMPRESSION: 1. Chest pain secondary to uncontrolled hypertension. 2. Borderline elevation of troponin I, most likely secondary to uncontrolled hypertension/accelerated hypertension. No evidence of non-ST elevation ID. 3. Accelerated hypertension, at present blood pressure controlled on current medications, which is amlodipine and MOLLY inhibitor. 4. History of congestive heart failure in the past, none recently. 5. Cardiomyopathy with borderline reduced LV ejection fraction of 50%. 6. COPD. 7. Hiatal hernia. 8. Depression. 9. History of tobacco abuse. 10. History of EtOH abuse. 11. Dyslipidemia. 12. Hypertriglyceridemia. RECOMMENDATIONS: Continue the patient on Norvasc and current medication, later we will start the patient on Toprol. The patient would be recommended to have an IV Lexiscan Cardiolite stress test in view of the patient's multiple CAD risk factors namely; age, hypertension, LV dysfunction which is borderline, and dyslipidemia. We will continue the patient on aspirin and current medication. We will start the patient later on a beta og. Strongly recommend that the patient have IV Lexiscan Cardiolite stress test. The patient wants to get this done as an outpatient. He has seen me before and wants to follow up with me. Hence my office number and my cell number given to the patient. Note this is a highly complex medical decision making. Note the patient was seen at 8 a.m. and subsequently the patient's echo was reviewed after it was done and this was discussed with the patient. Note 40 minutes spent on this patient with more than 50% of the time spent on direct patient care. His medications have been reviewed and medication changes have been discussed with the attending physician on the case. We will follow the patient as an outpatient. ADDENDUM: Note that the patient is already on a beta og, Toprol XL 50 mg, and he is also on lisinopril and also on his respiratory treatments and aspirin. This has been discussed with the hospitalist taking care of the patient. We will follow the patient as an outpatient. The patient was given my cell phone number. DICTATING PHYSICIAN: ARNOLD JOHNS M.D. [id number] PHY#: [id number] ID: [id number] JOB#: [id number] ACCT: [id number] cc:ARNOLD JOHNS M.D. >
== END 2016-09-24 11:53 | disposition home or self-care (01) ==
LOC: ER 13:09 → EH 18:16 → UNDOADMIN 18:17 → EH 18:17 → ER 18:17 → EH 21:19 → 3N 21:19 → UNDODISIN 09-24 11:53
PROVIDERS: ADMIT Family Medicine; ATTEND Family Medicine
DX: R07.9 Chest pain, unspecified (principal); I16.0 Hypertensive urgency; I11.0 Hypertensive heart disease with heart failure; I50.22 Chronic systolic (congestive) heart failure; R74.8 Abnormal levels of other serum enzymes; D69.6 Thrombocytopenia, unspecified; F10.10 Alcohol abuse, uncomplicated; J44.9 Chronic obstructive pulmonary disease, unspecified; F17.210 Nicotine dependence, cigarettes, uncomplicated; K44.9 Diaphragmatic hernia without obstruction or gangrene; F32.9 Major depressive disorder, single episode, unspecified; M46.87 Other specified inflammatory spondylopathies, lumbosacral region; R21 Rash and other nonspecific skin eruption; I42.9 Cardiomyopathy, unspecified; E66.9 Obesity, unspecified; E78.5 Hyperlipidemia, unspecified; E78.1 Pure hyperglyceridemia; R78.89 Finding of other specified substances, not normally found in blood; Z82.49 Family history of ischemic heart disease and other diseases of the circulatory system; Z91.19 Patient's noncompliance with other medical treatment and regimen; Z79.82 Long term (current) use of aspirin; Z79.899 Other long term (current) drug therapy; Z88.0 Allergy status to penicillin; Z68.32 Body mass index [BMI] 32.0-32.9, adult
CPT/HCPCS: 93005; 99285; 96372; 96374; 36415; 82553 ×2; 82550 ×2; 85025 ×2; 80048; 80053; 84484 ×2; 80307; 80061; 93306; 71010; 70450; 93010; G0378 ×3; J3490 ×12; J1650 ×2; S0164 ×2